=== PATIENT | female | born 1940 | race Caucasian/White ===

== ENCOUNTER 2016-08-05 21:34 | Inpatient (IN) | payer MEDICARE ==
[2016-08-05] MEDS ORDERED: HYDROmorphone 1 MG/ML SYRINGE IVP STA (23:34)
[2016-08-05] MEDS ORDERED: SODIUM CHLORIDE 0.9% 1,000 ML IV ONE (23:34)
[2016-08-05] MEDS ORDERED: KETOROLAC 60 MG/2 ML VIAL IVP STA (23:34)
[2016-08-05] MEDS ORDERED: ONDANSETRON 4 MG/2 ML VIAL IVP STA (23:34)
[2016-08-05] MEDS ORDERED: HYDROmorphone 1 MG/ML SYRINGE ONE (23:42)
[2016-08-05] MEDS ORDERED: KETOROLAC 30 MG/ML VIAL ONE (23:43)
[2016-08-05] MEDS ORDERED: ONDANSETRON 4 MG/2 ML VIAL ONE (23:43)
[2016-08-06] MEDS ORDERED: IOPAMIDOL-300 100 ML VIAL IVP ONE (00:28)
[2016-08-06] MEDS ORDERED: metroNIDAZOLE 500 MG/100 ML 100 ML IV ONE (01:32)
[2016-08-06] MEDS ORDERED: CIPROFLOXACIN 400 MG/200 ML 200 ML IV ONE (01:32)
[2016-08-06] MEDS ORDERED: BENZOCAINE/TETRACAINE/BUTAMBEN 20 GM MM PRN ×3 (01:50→17:35)
[2016-08-06] MEDS ORDERED: MORPHINE 2 MG/ML SYRINGE IVP PRN (01:50)
[2016-08-06] MEDS ORDERED: LORazepam 2 MG/ML SYRINGE IVP PRN (01:50)
[2016-08-06] MEDS ORDERED: PHENOL THROAT SPRAY 177 ML MM PRN ×2 (01:50→17:35)
[2016-08-06] MEDS ORDERED: PROCHLORPERAZINE 10 MG/2 ML VIAL IVP PRN (01:50)
[2016-08-06] MEDS ORDERED: ACETAMINOPHEN 1,000 MG/100 ML 100 ML IV PRN ×2 (01:50→17:35)
[2016-08-06] MEDS ORDERED: ONDANSETRON 4 MG/2 ML VIAL IVP PRN ×3 (01:50→17:59)
[2016-08-06] MEDS ORDERED: SODIUM CHLORIDE FLUSH 0.9% 10 ML SYRINGE IVP PRN (01:50)
[2016-08-06] MEDS ORDERED: BENZOCAINE SPRAY MM PRN ×3 (01:50→17:35)
[2016-08-06] MEDS ORDERED: CIPROFLOXACIN 400 MG/200 ML 200 ML IV SCH ×2 (03:00→18:00)
[2016-08-06] MEDS: LACTATED RINGERS 1,000 ML IV SCH ×2 (03:22→13:10)
[2016-08-06] MEDS ORDERED: LIDOCAINE JELLY 2% 5 ML TUBE TOP ONE (03:33)
[2016-08-06] MEDS ORDERED: SODIUM CHLORIDE FLUSH 0.9% 10 ML SYRINGE IVP SCH (06:00)
[2016-08-06] MEDS ORDERED: metroNIDAZOLE 500 MG/100 ML 100 ML IV SCH (06:00)
[2016-08-06] MEDS ORDERED: FAMOTIDINE 20 MG/50 ML 50 ML IV SCH (09:00)
[2016-08-06] MEDS ORDERED: SUFENTA/BUPIV 0.4 MCG/0.0625% 150 ML EP PRN (13:25)
[2016-08-06] MEDS ORDERED: NALBUPHINE 20 MG/ML AMP IVP PRN ×2 (13:27→17:59)
[2016-08-06] MEDS ORDERED: diphenhydrAMINE INJ 50 MG/ML VIAL IV PRN (13:27)
[2016-08-06] MEDS ORDERED: LACTATED RINGERS 1,000 ML IV ONE ×4 (14:28→17:00)
[2016-08-06] MEDS ORDERED: DEXAMETHASONE 4 MG/ML VIAL IVP ONE (14:30)
[2016-08-06] MEDS ORDERED: GLYCOPYRROLATE 1 MG/5 ML VIAL IVP ONE (14:30)
[2016-08-06] MEDS ORDERED: NEOSTIGMINE 1 MG/1 ML 10 ML MDV IVP ONE (14:30)
[2016-08-06] MEDS ORDERED: PROPOFOL 200 MG/20 ML VIAL IVP ONE (14:30)
[2016-08-06] MEDS ORDERED: fentaNYL 100 MCG/2 ML VIAL IVP ONE (14:30)
[2016-08-06] MEDS ORDERED: ACETAMINOPHEN 1,000 MG/100 ML VIAL IV ONE (14:30)
[2016-08-06] MEDS ORDERED: PHENYLEPHRINE 50 MG/5 ML VIAL IV ONE (14:30)
[2016-08-06] MEDS ORDERED: MIDAZOLAM 2 MG/2 ML VIAL IVP ONE (14:30)
[2016-08-06] MEDS ORDERED: SUCCINYLCHOLINE 200 MG/10 ML VIAL IVP ONE (14:30)
[2016-08-06] MEDS ORDERED: LIDOCAINE-PF 2% 10 ML AMP SUBQ ONE (14:30)
[2016-08-06] MEDS ORDERED: ROCURONIUM 50 MG/5 ML VIAL IVP ONE (14:30)
[2016-08-06] MEDS ORDERED: ONDANSETRON 4 MG/2 ML VIAL IVP ONE (14:30)
[2016-08-06] MEDS ORDERED: SUFENTA/BUPIV 0.4 MCG/0.0625% 150 ML EP ONE (17:20)
[2016-08-06] MEDS ORDERED: diphenhydrAMINE INJ 50 MG/ML VIAL IVP PRN (17:59)
[2016-08-06] MEDS ORDERED: fentaNYL 100 MCG/2 ML VIAL ONE (18:24)
[2016-08-06] MEDS ORDERED: ONDANSETRON 4 MG/2 ML VIAL ONE (20:19)
[2016-08-06] MEDS: FAMOTIDINE 20 MG/50 ML 50 ML IV SCH (21:21)
[2016-08-06] MEDS: D5.45NS W/20 MEQ KCL 1,000 ML IV SCH (21:21)
[2016-08-06] MEDS: HEPARIN 5,000 UNIT/ML VIAL SUBQ SCH (21:21)
[2016-08-06] MEDS: metroNIDAZOLE 500 MG/100 ML 100 ML IV SCH (22:50)
[2016-08-06] MEDS: SODIUM CHLORIDE FLUSH 0.9% 10 ML SYRINGE IVP SCH (22:50)
[2016-08-07] MEDS: SUFENTA/BUPIV 0.4 MCG/0.0625% 150 ML EP PRN ×4 (01:54→23:25)
[2016-08-07] MEDS: CIPROFLOXACIN 400 MG/200 ML 200 ML IV SCH ×2 (02:05→14:02)
[2016-08-07] MEDS: SODIUM CHLORIDE FLUSH 0.9% 10 ML SYRINGE IVP SCH ×3 (05:36→21:43)
[2016-08-07] MEDS: metroNIDAZOLE 500 MG/100 ML 100 ML IV SCH ×3 (05:43→21:37)
[2016-08-07] MEDS: D5.45NS W/20 MEQ KCL 1,000 ML IV SCH ×3 (08:08→23:27)
[2016-08-07] MEDS: HEPARIN 5,000 UNIT/ML VIAL SUBQ SCH ×2 (08:17→21:34)
[2016-08-07] MEDS: FAMOTIDINE 20 MG/50 ML 50 ML IV SCH ×2 (08:18→21:37)
[2016-08-07] MEDS: SODIUM CHLORIDE FLUSH 0.9% 10 ML SYRINGE IVP PRN (08:53)
[2016-08-07] MEDS: ONDANSETRON 4 MG/2 ML VIAL IVP PRN ×2 (09:08→18:51)
[2016-08-07] MEDS: HYDROmorphone 1 MG/ML SYRINGE IVP PRN (16:12)
[2016-08-08] MEDS: CIPROFLOXACIN 400 MG/200 ML 200 ML IV SCH ×2 (02:10→13:35)
[2016-08-08] MEDS: metroNIDAZOLE 500 MG/100 ML 100 ML IV SCH ×2 (05:18→14:56)
[2016-08-08] MEDS: SODIUM CHLORIDE FLUSH 0.9% 10 ML SYRINGE IVP SCH ×3 (05:19→22:03)
[2016-08-08] MEDS: SUFENTA/BUPIV 0.4 MCG/0.0625% 150 ML EP PRN ×3 (08:00→22:45)
[2016-08-08] MEDS: FAMOTIDINE 20 MG/50 ML 50 ML IV SCH ×2 (08:06→22:03)
[2016-08-08] MEDS: HEPARIN 5,000 UNIT/ML VIAL SUBQ SCH ×2 (08:07→22:02)
[2016-08-08] MEDS: D5.45NS W/20 MEQ KCL 1,000 ML IV SCH ×2 (10:02→11:48)
[2016-08-08] MEDS ORDERED: SODIUM PHOSPHATE 20 MMOL in SODIUM CHLORIDE 0.9% 250 ML IV ONE (11:00)
[2016-08-09] MEDS: D5.45NS W/20 MEQ KCL 1,000 ML IV SCH (00:11)
[2016-08-09] MEDS: LORazepam 2 MG/ML SYRINGE IVP PRN (00:19)
[2016-08-09] MEDS: METOCLOPRAMIDE 10 MG/2 ML VIAL IVP PRN (00:20)
[2016-08-09] MEDS: SODIUM CHLORIDE FLUSH 0.9% 10 ML SYRINGE IVP SCH ×3 (05:12→20:48)
[2016-08-09] MEDS ORDERED: POTASSIUM PHOSPHATE 21 MMOL in SODIUM CHLORIDE 0.9% 250 ML IV ONE (07:36)
[2016-08-09] MEDS: FAMOTIDINE 20 MG/50 ML 50 ML IV SCH ×2 (08:06→20:48)
[2016-08-09] MEDS: SUFENTA/BUPIV 0.4 MCG/0.0625% 150 ML EP PRN (08:08)
[2016-08-09] MEDS: HEPARIN 5,000 UNIT/ML VIAL SUBQ SCH ×2 (08:15→20:48)
[2016-08-09] MEDS ORDERED: SUFENTA/BUPIV 0.4 MCG/0.0625% 150 ML EP PRN (10:36)
[2016-08-09] MEDS: HYDROmorphone 2 MG TABLET PO PRN (17:03)
[2016-08-10] MEDS: SODIUM CHLORIDE FLUSH 0.9% 10 ML SYRINGE IVP PRN ×2 (03:40→14:31)
[2016-08-10] MEDS: HYDROmorphone 1 MG/ML SYRINGE IVP PRN ×3 (03:40→20:33)
[2016-08-10] MEDS: SODIUM CHLORIDE FLUSH 0.9% 10 ML SYRINGE IVP SCH ×3 (06:09→23:19)
[2016-08-10] MEDS: FAMOTIDINE 20 MG/50 ML 50 ML IV SCH ×2 (08:18→21:33)
[2016-08-10] MEDS: HEPARIN 5,000 UNIT/ML VIAL SUBQ SCH ×2 (08:21→21:33)
[2016-08-10] MEDS ORDERED: IOPAMIDOL-300 100 ML VIAL IVP ONE (09:19)
[2016-08-10] MEDS: HYDROmorphone 2 MG TABLET PO PRN (10:25)
[2016-08-10] MEDS: ONDANSETRON 4 MG/2 ML VIAL IVP PRN (20:33)
[2016-08-10] MEDS: D5NS W/20 MEQ KCL 1,000 ML IV SCH (20:50)
[2016-08-10] MEDS ORDERED: BISACODYL 10 MG SUPP PR SCH (21:00)
[2016-08-10] MEDS ORDERED: D5.45NS W/20 MEQ KCL 1,000 ML IV SCH (21:00)
[2016-08-11] MEDS: HYDROmorphone 1 MG/ML SYRINGE IVP PRN (04:45)
[2016-08-11] MEDS: SODIUM CHLORIDE FLUSH 0.9% 10 ML SYRINGE IVP SCH ×3 (05:05→21:17)
[2016-08-11] MEDS: D5NS W/20 MEQ KCL 1,000 ML IV SCH ×2 (05:47→15:56)
[2016-08-11] MEDS: FAMOTIDINE 20 MG/50 ML 50 ML IV SCH ×2 (09:58→21:17)
[2016-08-11] MEDS: LISINOPRIL 5 MG TABLET PO SCH (10:03)
[2016-08-11] MEDS: HEPARIN 5,000 UNIT/ML VIAL SUBQ SCH ×2 (10:51→21:16)
[2016-08-11] MEDS ORDERED: POTASSIUM CHLORIDE INJ 40 MEQ in SODIUM CHLORIDE 0.9% 480 ML IV ONE (11:41)
[2016-08-11] MEDS ORDERED: MAGNESIUM SULFATE 2 GRAM 50 ML IV ONE ×2 (11:42→15:27)
[2016-08-11] MEDS: POTASSIUM CHLOR 10 MEQ/100 ML 100 ML IV SCH ×4 (15:56→20:07)
[2016-08-11] MEDS: HYDROmorphone 2 MG TABLET PO PRN (16:03)
[2016-08-12] MEDS: HYDROmorphone 1 MG/ML SYRINGE IVP PRN ×4 (00:01→20:27)
[2016-08-12] MEDS: D5NS W/20 MEQ KCL 1,000 ML IV SCH (04:58)
[2016-08-12] MEDS: SODIUM CHLORIDE FLUSH 0.9% 10 ML SYRINGE IVP SCH ×3 (05:02→20:58)
[2016-08-12] MEDS: HEPARIN 5,000 UNIT/ML VIAL SUBQ SCH ×2 (10:02→20:39)
[2016-08-12] MEDS: LISINOPRIL 5 MG TABLET PO SCH (10:05)
[2016-08-12] MEDS: FAMOTIDINE 20 MG/50 ML 50 ML IV SCH ×2 (10:12→20:39)
[2016-08-12] MEDS: SODIUM CHLORIDE FLUSH 0.9% 10 ML SYRINGE IVP PRN (10:19)
[2016-08-12] MEDS: FAT EMULSION 20% 250 ML IV SCH (17:31)
[2016-08-12] MEDS: PPN (CLINIMIX E 4.25/5) 2,000 ML with MULTIVITAMIN 10 ML, TRACE ELEMENTS V CONC 1 ML IV SCH ×3 (17:32)
[2016-08-12] MEDS: ONDANSETRON 4 MG/2 ML VIAL IVP PRN (20:27)
[2016-08-12] MEDS: LORazepam 2 MG/ML SYRINGE IVP PRN (20:27)
[2016-08-13] MEDS: INSULIN REGULAR HUMAN 100 UNIT/1 ML 10 ML MDV SUBQ SCH ×4 (01:16→20:54)
[2016-08-13] MEDS: METOCLOPRAMIDE 10 MG/2 ML VIAL IVP PRN ×2 (01:27→17:14)
[2016-08-13] MEDS: SODIUM CHLORIDE FLUSH 0.9% 10 ML SYRINGE IVP SCH ×3 (06:11→21:00)
[2016-08-13] MEDS: FAMOTIDINE 20 MG/50 ML 50 ML IV SCH ×2 (10:16→20:55)
[2016-08-13] MEDS: LISINOPRIL 5 MG TABLET PO SCH (10:16)
[2016-08-13] MEDS: HEPARIN 5,000 UNIT/ML VIAL SUBQ SCH ×2 (10:18→21:00)
[2016-08-13] MEDS: LORazepam 2 MG/ML SYRINGE IVP PRN ×2 (17:14→21:45)
[2016-08-13] MEDS: PPN (CLINIMIX E 4.25/5) 2,000 ML with MULTIVITAMIN 10 ML, TRACE ELEMENTS V CONC 1 ML IV SCH ×3 (17:36)
[2016-08-13] MEDS: FAT EMULSION 20% 250 ML IV SCH (17:37)
[2016-08-13] MEDS: HYDROmorphone 2 MG TABLET PO PRN (21:44)
[2016-08-14] MEDS: INSULIN REGULAR HUMAN 100 UNIT/1 ML 10 ML MDV SUBQ SCH ×4 (01:21→19:11)
[2016-08-14] MEDS: SODIUM CHLORIDE FLUSH 0.9% 10 ML SYRINGE IVP PRN (03:23)
[2016-08-14] MEDS: LORazepam 2 MG/ML SYRINGE IVP PRN ×3 (05:04→21:44)
[2016-08-14] MEDS: SODIUM CHLORIDE FLUSH 0.9% 10 ML SYRINGE IVP SCH ×3 (05:05→21:39)
[2016-08-14] MEDS: HEPARIN 5,000 UNIT/ML VIAL SUBQ SCH ×2 (08:40→21:38)
[2016-08-14] MEDS: FAMOTIDINE 20 MG/50 ML 50 ML IV SCH ×2 (08:43→21:44)
[2016-08-14] MEDS: LISINOPRIL 5 MG TABLET PO SCH (08:43)
[2016-08-14] MEDS: hydroCHLOROthiazide 12.5 MG CAPSULE PO SCH (10:50)
[2016-08-14] MEDS: ONDANSETRON 4 MG/2 ML VIAL IVP PRN (12:26)
[2016-08-14] MEDS ORDERED: IOPAMIDOL-300 100 ML VIAL IVP ONE (15:43)
[2016-08-14] MEDS: FAT EMULSION 20% 250 ML IV SCH (19:11)
[2016-08-14] MEDS: PPN (CLINIMIX E 4.25/5) 2,000 ML with MULTIVITAMIN 10 ML, TRACE ELEMENTS V CONC 1 ML IV SCH ×3 (19:11)
[2016-08-14] MEDS: HYDROmorphone 2 MG TABLET PO PRN (21:44)
[2016-08-15] MEDS: INSULIN REGULAR HUMAN 100 UNIT/1 ML 10 ML MDV SUBQ SCH ×4 (00:29→19:24)
[2016-08-15] MEDS: SODIUM CHLORIDE FLUSH 0.9% 10 ML SYRINGE IVP SCH ×3 (06:36→20:50)
[2016-08-15] MEDS: hydroCHLOROthiazide 12.5 MG CAPSULE PO SCH (09:07)
[2016-08-15] MEDS: FAMOTIDINE 20 MG/50 ML 50 ML IV SCH ×2 (09:07→20:50)
[2016-08-15] MEDS: LISINOPRIL 5 MG TABLET PO SCH (09:07)
[2016-08-15] MEDS: HEPARIN 5,000 UNIT/ML VIAL SUBQ SCH ×2 (09:21→20:51)
[2016-08-15] MEDS: ONDANSETRON 4 MG/2 ML VIAL IVP PRN (16:16)
[2016-08-15] MEDS: SODIUM CHLORIDE FLUSH 0.9% 10 ML SYRINGE IVP PRN ×2 (16:16→19:13)
[2016-08-15] MEDS: FAT EMULSION 20% 250 ML IV SCH (19:11)
[2016-08-15] MEDS: TPN (CLINIMIX E 5/15) 2,000 ML with MULTIVITAMIN 10 ML, TRACE ELEMENTS V CONC 1 ML IV SCH ×3 (19:11)
[2016-08-16] MEDS: INSULIN REGULAR HUMAN 100 UNIT/1 ML 10 ML MDV SUBQ SCH ×4 (01:08→17:34)
[2016-08-16] MEDS: TPN (CLINIMIX E 5/15) 2,000 ML with MULTIVITAMIN 10 ML, TRACE ELEMENTS V CONC 1 ML IV SCH ×6 (01:23→18:36)
[2016-08-16] MEDS: SODIUM CHLORIDE FLUSH 0.9% 10 ML SYRINGE IVP SCH ×3 (06:07→20:42)
[2016-08-16] MEDS: FAMOTIDINE 20 MG/50 ML 50 ML IV SCH ×2 (08:59→20:42)
[2016-08-16] MEDS: HEPARIN 5,000 UNIT/ML VIAL SUBQ SCH ×2 (09:00→20:41)
[2016-08-16] MEDS: hydroCHLOROthiazide 12.5 MG CAPSULE PO SCH (09:02)
[2016-08-16] MEDS: LISINOPRIL 5 MG TABLET PO SCH (09:05)
[2016-08-16] MEDS: SODIUM CHLORIDE FLUSH 0.9% 10 ML SYRINGE IVP PRN (09:36)
[2016-08-16] MEDS: FAT EMULSION 20% 250 ML IV SCH (18:36)
[2016-08-16] MEDS: ONDANSETRON 4 MG/2 ML VIAL IVP PRN (18:47)
[2016-08-16] MEDS: HYDROmorphone 2 MG TABLET PO PRN (20:56)
[2016-08-17] MEDS: INSULIN REGULAR HUMAN 100 UNIT/1 ML 10 ML MDV SUBQ SCH ×5 (00:26→23:40)
[2016-08-17] MEDS: SODIUM CHLORIDE FLUSH 0.9% 10 ML SYRINGE IVP SCH ×3 (06:09→20:36)
[2016-08-17] MEDS: LISINOPRIL 5 MG TABLET PO SCH (08:27)
[2016-08-17] MEDS: HEPARIN 5,000 UNIT/ML VIAL SUBQ SCH ×2 (08:27→20:37)
[2016-08-17] MEDS: hydroCHLOROthiazide 12.5 MG CAPSULE PO SCH (08:27)
[2016-08-17] MEDS: FAMOTIDINE 20 MG/50 ML 50 ML IV SCH ×2 (08:33→20:36)
[2016-08-17] MEDS ORDERED: DIATR MEGLU/DIATRIZOATE SODIUM 120 ML BOTTLE PO ONE (15:15)
[2016-08-17] MEDS: TPN (CLINIMIX E 5/15) 2,000 ML with MULTIVITAMIN 10 ML, TRACE ELEMENTS V CONC 1 ML IV SCH ×3 (20:36)
[2016-08-17] MEDS: FAT EMULSION 20% 250 ML IV SCH (20:36)
[2016-08-17] MEDS: SODIUM CHLORIDE FLUSH 0.9% 10 ML SYRINGE IVP PRN (20:37)
[2016-08-18] MEDS: SODIUM CHLORIDE FLUSH 0.9% 10 ML SYRINGE IVP PRN ×4 (00:17→10:14)
[2016-08-18] MEDS: LORazepam 2 MG/ML SYRINGE IVP PRN (00:17)
[2016-08-18] MEDS: SODIUM CHLORIDE FLUSH 0.9% 10 ML SYRINGE IVP SCH ×3 (05:10→21:43)
[2016-08-18] MEDS: INSULIN REGULAR HUMAN 100 UNIT/1 ML 10 ML MDV SUBQ SCH ×4 (06:26→23:45)
[2016-08-18] MEDS: HEPARIN 5,000 UNIT/ML VIAL SUBQ SCH ×2 (09:36→20:52)
[2016-08-18] MEDS: LISINOPRIL 5 MG TABLET PO SCH (09:36)
[2016-08-18] MEDS: FAMOTIDINE 20 MG/50 ML 50 ML IV SCH (09:36)
[2016-08-18] MEDS: hydroCHLOROthiazide 12.5 MG CAPSULE PO SCH (09:36)
[2016-08-18] MEDS ORDERED: LORazepam 0.5 MG TABLET PO PRN (09:38)
[2016-08-18] MEDS ORDERED: IRON SUCROSE 200 MG in SODIUM CHLORIDE 0.9% 100ML 100 ML IV ONE (10:30)
[2016-08-18] MEDS: MEGESTROL 400 MG/10 ML UDC PO SCH (11:16)
[2016-08-18] MEDS: ONDANSETRON 4 MG/2 ML VIAL IVP PRN (21:43)
[2016-08-19] MEDS: SODIUM CHLORIDE FLUSH 0.9% 10 ML SYRINGE IVP PRN ×4 (02:49→12:45)
[2016-08-19] MEDS: PROCHLORPERAZINE 10 MG/2 ML VIAL IVP PRN ×2 (02:49→12:45)
[2016-08-19] MEDS: SODIUM CHLORIDE FLUSH 0.9% 10 ML SYRINGE IVP SCH ×2 (05:59→14:27)
[2016-08-19] MEDS: INSULIN REGULAR HUMAN 100 UNIT/1 ML 10 ML MDV SUBQ SCH ×2 (05:59→14:14)
[2016-08-19] MEDS: hydroCHLOROthiazide 12.5 MG CAPSULE PO SCH (08:46)
[2016-08-19] MEDS: LISINOPRIL 5 MG TABLET PO SCH (08:46)
[2016-08-19] MEDS: MEGESTROL 400 MG/10 ML UDC PO SCH (08:46)
[2016-08-19] MEDS: HEPARIN 5,000 UNIT/ML VIAL SUBQ SCH (08:47)
[2016-08-19] MEDS ORDERED: FAMOTIDINE 20 MG TABLET PO SCH (09:00)
[2016-08-19] MEDS: ONDANSETRON 4 MG/2 ML VIAL IVP PRN (11:35)
== END 2016-08-19 17:05 | disposition home or self-care (01) | DRG 330 ==
PROC: 0DTF0ZZ Resection of Right Large Intestine, Open Approach (ICD-10-PCS; principal; 2016-08-05)
PROC: 0DBB0ZZ Excision of Ileum, Open Approach (ICD-10-PCS; 2016-08-06 11:10)
PROC: 3E0436Z Introduction of Nutritional Substance into Central Vein, Percutaneous Approach (ICD-10-PCS; 2016-08-15)
PROC: 02HV33Z Insertion of Infusion Device into Superior Vena Cava, Percutaneous Approach (ICD-10-PCS; 2016-08-15)
DX: K52.9 Noninfective gastroenteritis and colitis, unspecified (principal); K56.60 Unspecified intestinal obstruction; C18.2 Malignant neoplasm of ascending colon; F17.200 Nicotine dependence, unspecified, uncomplicated; E46 Unspecified protein-calorie malnutrition; K91.3 Postprocedural intestinal obstruction; J98.11 Atelectasis; J90 Pleural effusion, not elsewhere classified; J95.89 Other postprocedural complications and disorders of respiratory system, not elsewhere classified; Z68.20 Body mass index [BMI] 20.0-20.9, adult; Y92.234 Operating room of hospital as the place of occurrence of the external cause; I10 Essential (primary) hypertension; E83.42 Hypomagnesemia; E87.6 Hypokalemia; E83.39 Other disorders of phosphorus metabolism; D50.9 Iron deficiency anemia, unspecified; E53.8 Deficiency of other specified B group vitamins; E55.9 Vitamin D deficiency, unspecified; F17.210 Nicotine dependence, cigarettes, uncomplicated; E78.00 Pure hypercholesterolemia, unspecified; K21.9 Gastro-esophageal reflux disease without esophagitis; S90.121A Contusion of right lesser toe(s) without damage to nail, initial encounter; X58.XXXA Exposure to other specified factors, initial encounter; N63 Unspecified lump in breast; Y83.2 Surgical operation with anastomosis, bypass or graft as the cause of abnormal reaction of the patient, or of later complication, without mention of misadventure at the time of the procedure; Z80.0 Family history of malignant neoplasm of digestive organs

== ENCOUNTER 2016-08-25 10:09 | Outpatient (CLI) | payer MEDICARE | END 2016-08-25 10:10 | disposition home or self-care (01) | DX: C18.2 Malignant neoplasm of ascending colon (principal) ==

== ENCOUNTER 2016-09-07 10:51 | Outpatient (CLI) | payer MEDICARE | END 2016-09-07 10:52 | disposition home or self-care (01) | DX: N63 Unspecified lump in breast (principal) | CPT/HCPCS: 76642; G0204 ==

== ENCOUNTER 2016-09-21 09:07 | Outpatient (CLI) | payer MEDICARE ==
[2016-09-21] MEDS ORDERED: BUFFERED LIDOCAINE 10 ML SYRINGE IU ONE (12:21)
[2016-09-21] MEDS ORDERED: BUPIVACAINE 0.5%-EPI 1:200000 PF 30 ML VIAL SUBQ ONE (12:21)
== END 2016-09-21 09:08 | disposition home or self-care (01) ==
DX: N64.89 Other specified disorders of breast (principal)
CPT/HCPCS: 19083; G0206

== ENCOUNTER 2016-12-01 11:06 | Day surgery (SDC) | payer MEDICARE ==
[2016-12-01] MEDS ORDERED: LACTATED RINGERS 1,000 ML IV ONE ×2 (12:03→15:48)
[2016-12-01] MEDS ORDERED: fentaNYL 100 MCG/2 ML VIAL IVP ONE (14:45)
[2016-12-01] MEDS ORDERED: MIDAZOLAM 2 MG/2 ML VIAL IVP ONE (14:45)
[2016-12-01 16:38] VITALS: BP 103/59
== END 2016-12-01 11:07 | disposition home or self-care (01) ==
LOC: SDS 11:06
PROVIDERS: ATTEND Surgery
PROC: 0DBL8ZX Excision of Transverse Colon, Via Natural or Artificial Opening Endoscopic, Diagnostic (ICD-10-PCS; 2016-12-01)
PROC: 0DBM8ZX Excision of Descending Colon, Via Natural or Artificial Opening Endoscopic, Diagnostic (ICD-10-PCS; principal; 2016-12-01 13:15)
DX: Z85.038 Personal history of other malignant neoplasm of large intestine (principal); D12.4 Benign neoplasm of descending colon; D12.3 Benign neoplasm of transverse colon; K64.8 Other hemorrhoids; K57.30 Diverticulosis of large intestine without perforation or abscess without bleeding; I10 Essential (primary) hypertension; K21.9 Gastro-esophageal reflux disease without esophagitis; Z90.49 Acquired absence of other specified parts of digestive tract; Z87.891 Personal history of nicotine dependence
CPT/HCPCS: 45385; J7120; 88305

== ENCOUNTER 2017-02-16 11:25 | Outpatient (CLI) | payer MEDICARE ==
[2017-02-16 19:27] LABS: BASOPHILS % (AUTO) 0.4 %; EOSINOPHILS # (AUTO) 0.1 10^3/uL (0.0-0.7); HCT - HEMATOCRIT 41.7 % (37.0-47.0); HGB - HEMOGLOBIN 13.7 g/dL (12.0-16.0); LYMPHOCYTES # (AUTO) 1.5 10^3/uL (1.5-3.5); LYMPHOCYTES % (AUTO) 21.2 %; MEAN CORPUSCULAR HGB CONC 32.9 g/dL (32.0-36.0); MEAN PLATELET VOLUME 7.1 fL (7.9-10.8); MONOCYTES # (AUTO) 0.5 10^3/uL (0.0-1.0); MONOCYTES % (AUTO) 7.3 %; NEUTROPHILS % (AUTO) 70.1 %; NUCLEATED RED BLOOD CELLS AUTO 0.1 /100WBC; RED CELL DISTRIBUTION WIDTH 14.4 % (12.0-15.0); UNCORRECTED WHITE BLOOD COUNT 7.1 x10^3/uL; WHITE BLOOD COUNT 7.1 x10^3/uL (4.8-10.8)
[2017-02-16 19:37] LABS: ALBUMIN/GLOBULIN RATIO 1.2 (1.0-2.2); BILIRUBIN,TOTAL 0.7 mg/dL (0.2-1.0); CALCIUM 9.7 mg/dL (8.5-10.3); CREATININE 0.8 mg/dL (0.4-1.0); POTASSIUM 3.3 mmol/L (3.5-5.0); TOTAL PROTEIN 8.3 g/dL (6.7-8.2)
== END 2017-02-16 11:26 ==
LOC: LAB.WCP 11:25
PROVIDERS: ATTEND Physician Assistant Medical
DX: I10 Essential (primary) hypertension (principal)
CPT/HCPCS: 36415; 80053; 85025

== ENCOUNTER 2017-06-05 13:42 | Outpatient (CLI) | payer MEDICARE ==
--- NOTE | 2017-06-05 18:11 | Mammography Report ---
DIGITAL DIAGNOSTIC RIGHT MAMMOGRAM: 06/05/2017 CLINICAL INDICATION: Followup benign biopsy. COMPARISON: 09/21/2016, 09/07/2016. TECHNIQUE: Right CC, MLO, true lateral views. FINDINGS: The right breast again demonstrates heterogeneously dense fibroglandular parenchyma. The previously biopsied hematoma in the right upper outer quadrant has decreased in size, now measuring 3.3 cm, and demonstrates increased rim calcification. The biopsy marker has migrated inferiorly by approximately 2.5 cm and laterally by approximately 3.5 cm. Other coarse, typically benign calcifications are present. No suspicious mass or region of architectural distortion is identified. IMPRESSION: BENIGN FINDINGS, WITH DECREASING SIZE OF THE PREVIOUSLY BIOPSIED HEMATOMA. RECOMMENDATION: The patient can return to routine annual screening, with next screening mammogram due in August 2017, unless otherwise clinically indicated. BIRADS CATEGORY 2 - BENIGN FINDINGS. STANDARD QUALIFYING STATEMENTS 1. This examination was reviewed with the aid of Computed Aided Detection (CAD). 2. A negative x-ray report should not delay biopsy if a dominant or clinically suspicious mass is present. More than 5% of cancers are not identified by x-ray. 3. Dense breasts may obscure an underlying neoplasm. TD: 06/05/2017 19:06 AUDREY
== END 2017-06-05 13:43 | disposition home or self-care (01) ==
LOC: DI 13:42
PROVIDERS: ATTEND Physician Assistant Medical
DX: R92.8 Other abnormal and inconclusive findings on diagnostic imaging of breast (principal)

== ENCOUNTER 2017-12-25 08:28 | Outpatient (CLI) | payer MEDICARE, OTHER ==
[2017-12-25 12:50] LABS: BASOPHILS % (AUTO) 0.9 %; EOSINOPHILS # (AUTO) 0.2 10^3/uL (0.0-0.7); EOSINOPHILS % (AUTO) 3.5 %; HGB - HEMOGLOBIN 13.9 g/dL (12.0-16.0); LYMPHOCYTES # (AUTO) 1.4 10^3/uL (1.5-3.5); LYMPHOCYTES % (AUTO) 29.8 %; MEAN CORPUSCULAR HEMOGLOBIN 29.2 pg (27.0-31.0); MEAN CORPUSCULAR HGB CONC 33.8 g/dL (32.0-36.0); MEAN CORPUSCULAR VOLUME 86.6 fL (81.0-99.0); MEAN PLATELET VOLUME 7.6 fL (7.9-10.8); MONOCYTES # (AUTO) 0.3 10^3/uL (0.0-1.0); MONOCYTES % (AUTO) 7.1 %; NEUTROPHILS # (AUTO) 2.7 10^3/uL (1.5-6.6); NEUTROPHILS % (AUTO) 58.7 %; PLT - PLATELET COUNT 271 10^3/uL (130-450); RED BLOOD COUNT 4.77 10^6/uL (4.20-5.40); RED CELL DISTRIBUTION WIDTH 13.4 % (12.0-15.0); WHITE BLOOD COUNT 4.7 x10^3/uL (4.8-10.8)
[2017-12-25 13:34] LABS: ALBUMIN 4.3 g/dL (3.2-5.5); ALBUMIN/GLOBULIN RATIO 1.4 (1.0-2.2); ALKALINE PHOSPHATASE 64 IU/L (42-121); ALT ALANINE AMINOTRANSFERASE 39 IU/L (10-60); AST ASPARTATE AMINOTRANSFERASE 37 IU/L (10-42); BILIRUBIN,TOTAL 0.6 mg/dL (0.2-1.0); BUN - BLOOD UREA NITROGEN 19 mg/dL (6-20); CALCIUM 9.4 mg/dL (8.5-10.3); CARBON DIOXIDE - CO2 31 mmol/L (21-32); CHLORIDE 102 mmol/L (101-111); CHOL/HDL RATIO 5.7 (<4.4); CHOLESTEROL 298 mg/dL; CREATININE 0.8 mg/dL (0.4-1.0); GFR - MDRD 70 (>89); GLUCOSE 111 mg/dL (70-100); HDL CHOLESTEROL 52 mg/dL; LDL CHOLESTEROL,CALCULATED 179 mg/dL; LDL/HDL RATIO 3.4 (<4.4); SODIUM 141 mmol/L (135-145); TOTAL PROTEIN 7.3 g/dL (6.7-8.2); VLDL CHOLESTEROL 67 mg/dL
[2017-12-25 13:56] LABS: HB2 TOTAL 15.3 g/dL; HEMOGLOBIN A1C 0.62 g/dL; HEMOGLOBIN A1C % 5.9 % (4.6-6.2)
== END 2017-12-25 08:29 ==
LOC: LAB.WCP 08:28
PROVIDERS: ATTEND Physician Assistant Medical
DX: I10 Essential (primary) hypertension (principal); E78.5 Hyperlipidemia, unspecified; R73.09 Other abnormal glucose
CPT/HCPCS: 36415; 80053; 80061; 83036; 83721; 85025

== ENCOUNTER 2018-02-12 11:05 | Day surgery (SDC) | payer MEDICARE ==
[2018-02-12] MEDS ORDERED: LACTATED RINGERS 1,000 ML IV ONE ×2 (11:34→13:08)
[2018-02-12] MEDS ORDERED: fentaNYL 250 MCG/5 ML VIAL IVP ONE (12:21)
[2018-02-12] MEDS ORDERED: MIDAZOLAM 2 MG/2 ML VIAL IVP ONE (12:21)
[2018-02-12 13:33] VITALS: BP 94/60
== END 2018-02-12 11:06 | disposition home or self-care (01) ==
LOC: SDS 11:05
PROVIDERS: ATTEND Surgery
PROC: 0DJD8ZZ Inspection of Lower Intestinal Tract, Via Natural or Artificial Opening Endoscopic (ICD-10-PCS; principal; 2018-02-12 12:30)
DX: Z12.11 Encounter for screening for malignant neoplasm of colon (principal); Z85.038 Personal history of other malignant neoplasm of large intestine; K64.8 Other hemorrhoids; I10 Essential (primary) hypertension; Z79.899 Other long term (current) drug therapy; Z87.891 Personal history of nicotine dependence
CPT/HCPCS: G0105; J3010; J7120

== ENCOUNTER 2018-08-27 08:00 | Outpatient (CLI) | payer MEDICARE ==
[2018-08-27 19:46] LABS: BASOPHILS % (AUTO) 0.5 %; EOSINOPHILS # (AUTO) 0.2 10^3/uL (0.0-0.7); EOSINOPHILS % (AUTO) 2.5 %; HGB - HEMOGLOBIN 14.1 g/dL (12.0-16.0); LYMPHOCYTES # (AUTO) 1.2 10^3/uL (1.5-3.5); LYMPHOCYTES % (AUTO) 18.5 %; MEAN CORPUSCULAR HEMOGLOBIN 28.8 pg (27.0-31.0); MEAN CORPUSCULAR HGB CONC 32.5 g/dL (32.0-36.0); MEAN CORPUSCULAR VOLUME 88.7 fL (81.0-99.0); MEAN PLATELET VOLUME 7.2 fL (7.9-10.8); MONOCYTES # (AUTO) 0.5 10^3/uL (0.0-1.0); MONOCYTES % (AUTO) 7.8 %; NEUTROPHILS # (AUTO) 4.8 10^3/uL (1.5-6.6); NEUTROPHILS % (AUTO) 70.7 %; PLT - PLATELET COUNT 261 10^3/uL (130-450); RED BLOOD COUNT 4.89 10^6/uL (4.20-5.40); RED CELL DISTRIBUTION WIDTH 13.5 % (12.0-15.0); WHITE BLOOD COUNT 6.7 x10^3/uL (4.8-10.8)
[2018-08-27 19:49] LABS: ALBUMIN 4.3 g/dL (3.2-5.5); ALBUMIN/GLOBULIN RATIO 1.3 (1.0-2.2); ALKALINE PHOSPHATASE 52 IU/L (42-121); ALT ALANINE AMINOTRANSFERASE 39 IU/L (10-60); AST ASPARTATE AMINOTRANSFERASE 36 IU/L (10-42); BILIRUBIN,TOTAL 0.8 mg/dL (0.2-1.0); BUN - BLOOD UREA NITROGEN 18 mg/dL (6-20); CALCIUM 9.9 mg/dL (8.5-10.3); CARBON DIOXIDE - CO2 31 mmol/L (21-32); CHLORIDE 100 mmol/L (101-111); CHOL/HDL RATIO 6.1 (<4.4); CHOLESTEROL 323 mg/dL; CREATININE 0.9 mg/dL (0.4-1.0); GFR - MDRD 61 (>89); GLUCOSE 98 mg/dL (70-100); HDL CHOLESTEROL 53 mg/dL; LDL CHOLESTEROL,CALCULATED 212 mg/dL; SODIUM 143 mmol/L (135-145); TOTAL PROTEIN 7.7 g/dL (6.7-8.2); VLDL CHOLESTEROL 58 mg/dL
[2018-08-27 20:06] LABS: HB2 TOTAL 15.5 g/dL; HEMOGLOBIN A1C 0.62 g/dL; HEMOGLOBIN A1C % 5.8 % (4.6-6.2)
== END 2018-08-27 23:59 | disposition home or self-care (01) ==
LOC: LAB.WCP 08:00
PROVIDERS: ATTEND Physician Assistant Medical
DX: R73.09 Other abnormal glucose (principal); E78.5 Hyperlipidemia, unspecified; D50.9 Iron deficiency anemia, unspecified
CPT/HCPCS: 36415; 80053; 80061; 83036; 83721; 85025

== ENCOUNTER → 2019-02-18 | Outpatient (CLI) | payer MEDICARE ==
--- NOTE | 2019-02-19 11:22 | XRAY Report ---
Reason: LEFT KNEE PAIN Procedure Date: 02/18/2019 Accession Number: [id number] / [id number] Procedure: WCP - Knee 3 View LT CPT Code: FULL RESULT: EXAM: LEFT KNEE RADIOGRAPHY EXAM DATE: 02/18/2019 11:52 AM. CLINICAL HISTORY: Left knee pain. COMPARISON: None. TECHNIQUE: 3 views. FINDINGS: Bones: Normal. No fractures or bone lesions. Joints: Minor marginal spurring is seen mostly in the patellofemoral and medial compartment. Minimal joint space narrowing is suggested medially. Alignment is otherwise preserved. No effusion. Soft Tissues: Mild chondrocalcinosis is seen in the lateral compartment. IMPRESSION: Minimal to mild DJD changes seen. Mild chondrocalcinosis seen. RADIA
--- NOTE | 2019-02-19 15:46 | XRAY Report ---
Reason: LEFT FOOT DROP Procedure Date: 02/18/2019 Accession Number: [id number] / [id number] Procedure: WCP - Foot 3 View LT CPT Code: FULL RESULT: EXAM: LEFT FOOT RADIOGRAPHY EXAM DATE: 02/18/2019 11:52 AM. CLINICAL HISTORY: LEFT FOOT DROP. COMPARISON: None. TECHNIQUE: 3 views. FINDINGS: Bones: Small plantar calcaneal heel spur and Achilles insertional enthesophyte. No fractures. Normal alignment. Flattening of the second metatarsal head may be physiologic or reflect healed osteonecrosis. Joints: Normal. No subluxations. Soft Tissues: Normal. No soft tissue swelling. IMPRESSION: No fracture. RADIA
== END ==
LOC: DI.WCP 08:00 → EDSTATUS 12:28
PROVIDERS: ATTEND Physician Assistant Medical
DX: M17.12 Unilateral primary osteoarthritis, left knee (principal); M11.262 Other chondrocalcinosis, left knee; M21.372 Foot drop, left foot

== ENCOUNTER 2019-03-04 08:12 | Outpatient (CLI) | payer MEDICARE ==
[2019-03-04 12:41] LABS: CALCIUM 9.8 mg/dL (8.5-10.3)
[2019-03-04 12:55] LABS: HB2 TOTAL 13.7 g/dL; HEMOGLOBIN A1C 0.54 g/dL; HEMOGLOBIN A1C % 5.8 % (4.6-6.2)
== END 2019-03-04 23:59 | disposition home or self-care (01) ==
LOC: LAB.WCP 08:12
PROVIDERS: ATTEND Physician Assistant Medical
DX: R73.09 Other abnormal glucose (principal)
CPT/HCPCS: 36415; 80048; 83036

== ENCOUNTER 2019-05-06 13:02 | Day surgery (SDC) | payer MEDICARE ==
[2019-05-06] MEDS ORDERED: MIDAZOLAM 2 MG/2 ML VIAL IVP ONE (13:03)
[2019-05-06] MEDS ORDERED: fentaNYL 250 MCG/5 ML VIAL IVP ONE (13:03)
[2019-05-06] MEDS ORDERED: LACTATED RINGERS 1,000 ML IV ONE (13:12)
[2019-05-06 15:54] VITALS: BP 93/40
== END 2019-05-06 13:03 | disposition home or self-care (01) ==
LOC: SDS 13:02
PROVIDERS: ATTEND Internal Medicine Gastroenterology
PROC: 0DJD8ZZ Inspection of Lower Intestinal Tract, Via Natural or Artificial Opening Endoscopic (ICD-10-PCS; principal; 2019-05-06 14:30)
DX: Z12.11 Encounter for screening for malignant neoplasm of colon (principal); K57.30 Diverticulosis of large intestine without perforation or abscess without bleeding; I10 Essential (primary) hypertension; Z85.038 Personal history of other malignant neoplasm of large intestine; Z86.010 Personal history of colon polyps; Z90.49 Acquired absence of other specified parts of digestive tract; Z98.0 Intestinal bypass and anastomosis status; Z79.899 Other long term (current) drug therapy; Z87.891 Personal history of nicotine dependence
CPT/HCPCS: G0105; J3010; J7120

== ENCOUNTER 2021-12-15 15:36 | Emergency (ER) | payer MEDICARE, OTHER ==
[2021-12-15] MEDS ORDERED: MORPHINE 2 MG/ML CARPUJECT IVP STA ×2 (15:43→16:37)
[2021-12-15 15:56] LABS: BASOPHILS % (AUTO) 0.3 %; EOSINOPHILS # (AUTO) 0.1 10^3/uL (0.0-0.7); EOSINOPHILS % (AUTO) 1.1 %; HCT - HEMATOCRIT 37.8 % (37.0-47.0); HGB - HEMOGLOBIN 12.1 g/dL (12.0-16.0); LYMPHOCYTES # (AUTO) 0.9 10^3/uL (1.5-3.5); LYMPHOCYTES % (AUTO) 10.5 %; MEAN CORPUSCULAR HEMOGLOBIN 28.4 pg (27.0-31.0); MEAN CORPUSCULAR VOLUME 88.7 fL (81.0-99.0); MEAN PLATELET VOLUME 8.5 fL (7.9-10.8); MONOCYTES # (AUTO) 0.5 10^3/uL (0.0-1.0); MONOCYTES % (AUTO) 5.5 %; NEUTROPHILS # (AUTO) 7.3 10^3/uL (1.5-6.6); NEUTROPHILS % (AUTO) 82.4 %; PLT - PLATELET COUNT 228 10^3/uL (130-450); RED BLOOD COUNT 4.26 10^6/uL (4.20-5.40); WHITE BLOOD COUNT 8.9 x10^3/uL (4.8-10.8)
--- NOTE | 2021-12-15 16:04 | ED Physician Documentation ---
PD HPI ABD PAIN - Stated complaint Stated Complaint: CP - Chief complaint Chief Complaint: Cardiac - History obtained from History obtained from: Patient - History of Present Illness Timing - onset: How many minutes ago (45) - Additional information Additional information: 81yoF with PMH colon cancer s/p resection, in remission presents by EMS for severe midepigastric abdominal pain. Patient woke up from a nap with severe pain in her midepigastrum stating the pain felt like "a punch to the chest". She went to a walk-in clinic, and they called 911. Patient was given nitroglycerin by EMS that she reports an allergy to aspirin. This did not change her pain. EKG sinus rhythm. On arrival patient states that she is never felt pain like this before. It woke her up from sleep. Denies alcohol use, reports previous history of cholecystectomy.Pain is aching, constant with intermittent worsening, radiates upward into her chest. Denies associated nausea or vomiting. Worse with palpation. Review of Systems Ten Systems: 10 systems reviewed and negative Constitutional: denies: Fever, Chills, Myalgias Eyes: denies: Loss of vision, Decreased vision, Photophobia Ears: denies: Loss of hearing, Ear pain, Drainage/discharge Nose: denies: Rhinorrhea / runny nose, Congestion, Foreign Body Throat: denies: Dental pain / toothache, Oral lesions / sores, Sore throat Cardiac: denies: Chest pain / pressure, Palpitations, Calf pain Respiratory: denies: Dyspnea, Cough, Wheezing GI: reports: Abdominal Pain. 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 : None HEENT: None Psych: None Musculoskeletal: None Derm: None - Past Surgical History Past Surgical History: Yes General: Cholecystectomy, Appendectomy, Bowel surgery, Colonoscopy Ortho: Other HEENT: Cataracts, Rhinoplasty, Other Derm: Skin cancer surgery - Present Medications Home Medications: Ambulatory Orders Medication Instructions Recorded Confirmed Omeprazole 40 mg PO DAILY #30 cap 12/15/21 - Allergies Allergies/Adverse Reactions: Allergies Allergy/AdvReac Type Severity Reaction Status Date / Time aspirin Allergy Severe Respiratory Verified 03/12/19 14:48 peanut Allergy Unknown Verified 12/15/21 15:45 strawberry Allergy Hives Verified 03/12/19 14:48 - Social History Does the pt smoke?: Yes Smoking Status: Current every day smoker Does the pt drink ETOH?: No Does the pt have substance abuse?: No - Immunizations Immunizations are current?: Yes - POLST Patient has POLST: No PD ED PE NORMAL - Vitals Vital signs reviewed: Yes - General General: Alert and oriented X 3, Well developed/nourished, Other (in pain) - HEENT HEENT: Atraumatic, PERRL, EOMI, Ears normal, Moist mucous membranes - Neck Neck: Supple, no meningeal sign, No bony TTP, No JVD - Cardiac Cardiac: RRR, No murmur, Strong equal pulses - Respiratory Respiratory: No respiratory distress, Clear bilaterally - Abdomen Abdomen: Soft, Non distended, Other (midepigastric tenderness to palpation) - Female Female : Deferred - Rectal Rectal: Deferred - Back Back: No CVA TTP, No spinal TTP - Derm Derm: Normal color, Warm and dry, No rash - Extremities Extremities: No deformity, No tenderness to palpate, Normal ROM s pain, No edema - Neuro Neuro: Alert and oriented X 3, manager implementation 2-12 intact, No motor deficit, No sensory deficit, Normal speech - Psych Psych: Normal mood, Normal affect Results - Vitals Vitals: Oxygen O2 Source Room air - EKG (time done) 1552 Rate: Rate (enter#) (77) Rhythm: NSR [place]: Normal Intervals: Normal OR, RBBB Ischemia: Normal ST segments - Labs Labs: Laboratory Tests 12/15/21 12/15/21 12/15/21 15:52 15:52 15:52 WBC 8.9 RBC 4.26 Hgb 12.1 Hct 37.8 MCV 88.7 MCH 28.4 MCHC 32.0 RDW 13.0 Plt Count 228 MPV 8.5 Neut # (Auto) 7.3 H Lymph # (Auto) 0.9 L [place] # (Auto) 0.5 Eos # (Auto) 0.1 Baso # (Auto) 0.0 Absolute Nucleated RBC 0.00 Nucleated RBC % 0.0 Sodium 141 Potassium 3.4 L Chloride 103 Carbon Dioxide 31 Anion Gap 7.0 BUN 10 Creatinine 0.7 Estimated GFR (MDRD) 81 L Glucose 144 H Lactic Acid Calcium 8.9 Total Bilirubin 0.6 AST 22 ALT 17 Alkaline Phosphatase 54 Troponin I High Sens 5.1 B-Natriuretic Peptide Total Protein 6.7 Albumin 3.8 Globulin 2.9 Albumin/Globulin Ratio 1.3 Lipase 53 H 12/15/21 12/15/21 12/15/21 15:52 17:40 18:31 WBC RBC Hgb Hct MCV MCH MCHC RDW Plt Count MPV Neut # (Auto) Lymph # (Auto) [place] # (Auto) Eos # (Auto) Baso # (Auto) Absolute Nucleated RBC Nucleated RBC % Sodium Potassium Chloride Carbon Dioxide Anion Gap BUN Creatinine Estimated GFR (MDRD) Glucose Lactic Acid 0.9 Calcium Total Bilirubin AST ALT Alkaline Phosphatase Troponin I High Sens 7.5 B-Natriuretic Peptide 11 Total Protein Albumin Globulin Albumin/Globulin Ratio Lipase PD MEDICAL DECISION MAKING - ED course Complexity details: reviewed results, re-evaluated patient ED course: Patient transferred by EMS for chest pain, however it is more midepigastric pain that has occasionally radiate upward into her abdomen. Abdomen soft, there is tenderness palpation in the midepigastric region, however no peritoneal signs present. Labs and imaging ordered Lipase is normal, troponins negative x2. CT with mild colitis, however is diffuse and does not correlate with patient's symptoms. Patient was informed of her results, she is repeatedly asking for additional IV pain medications. No indication for additional medications at this time, no indications for narcotics upon discharge. Will treat as gastritis, PCP follow-up advised. Departure - Departure Disposition: 01 Home, Self Care Clinical Impression: Abdominal pain Condition: Stable Instructions: ED Gastritis Prescriptions: Omeprazole 40 mg PO DAILY #30 cap Comments: Call your doctor to arrange a follow-up appointment, make the next available appointment. In the interim, return anytime if worse or if new symptoms develop. Discharge Date/Time: 12/15/21 19:26
[2021-12-15 16:09] LABS: ALBUMIN 3.8 g/dL (3.2-5.5); ALBUMIN/GLOBULIN RATIO 1.3 (1.0-2.2); BILIRUBIN,TOTAL 0.6 mg/dL (0.2-1.0); CALCIUM 8.9 mg/dL (8.5-10.3); CREATININE 0.7 mg/dL (0.4-1.0); POTASSIUM 3.4 mmol/L (3.5-5.0); TOTAL PROTEIN 6.7 g/dL (6.7-8.2)
--- NOTE | 2021-12-15 16:14 | XRAY Report ---
PROCEDURE: Chest 1 View X-Ray INDICATIONS: midepigastric/chest pain TECHNIQUE: One view of the chest was acquired. COMPARISON: 08/09/2016 and 08/15/2016 FINDINGS: Surgical changes and devices: None. Lungs and pleura: No pleural effusions or pneumothorax. Lungs are clear. Mediastinum: Mediastinal contours appear normal. Heart size is normal. Bones and chest wall: No suspicious bony lesions. Overlying soft tissues appear unremarkable. IMPRESSION: Echogenic Reviewed by: Maritza Knowles MD, PhD on 12/15/2021 4:12 PM PDT Approved by: Maritza Knowles MD, PhD on 12/15/2021 4:12 PM PDT Station ID: [id number]
--- NOTE | 2021-12-15 17:09 | CT Report ---
PROCEDURE: Abdomen/Pelvis W INDICATIONS: midepigastric pain CONTRAST: IV CONTRAST: Optiray 320 ml: 100 PO CONTRAST: *NO PO CONTRAST TECHNIQUE: After the administration of intravenous contrast, 5 mm thick sections acquired from the diaphragms to the symphysis. 5 mm thick coronal and sagittal reformats were acquired. For radiation dose reducti on, the following was used: automated exposure control, adjustment of mA and/or kV according to hailey ent size. COMPARISON: CT abdomen/pelvis 4-17 FINDINGS: Image quality: Excellent. ABDOMEN: Lung bases: Mild atelectasis is seen in the lung bases. Heart size is normal. A peripherally calcifi ed lesion is partially imaged in the right breast that is stable in size when compared to the prior C T. Solid organs: Liver and spleen are normal in size and enhancement. Gallbladder is surgically absent . Biliary system is non dilated. Pancreas enhances normally. No adrenal nodules. A 4 mm nonobstruc ting calculus is seen in the interpolar region of the right kidney. A surgical clip is seen inferior to the right kidney. No left-sided renal calculus or hydronephrosis. Bilateral subcentimeter hypodens e lesions are most likely cysts. Peritoneum and bowel: Mild bowel thickening is seen in the transverse, descending, and sigmoid colon that may be secondary to underdistention versus a mild colitis. A few diverticula are seen in the sig moid colon without signs of acute diverticulitis. Right lower quadrant colonic anastomosis is seen. N o signs of bowel obstruction. No free fluid or air. Nodes and vessels: No retroperitoneal or mesenteric adenopathy by size criteria. Aorta and inferior vena cava are normal in size. Aortic atherosclerotic calcifications are present. Miscellaneous: No ventral hernias. PELVIS: Genitourinary: Bladder wall thickness is normal. Miscellaneous: No inguinal hernias or adenopathy. Bones: No suspicious bony lesions. No vertebral body compression fractures. Degenerative changes a re seen in the spine including grade 1 anterolisthesis of L3 on L4 and L4 on L5. IMPRESSION: 1.Mild bowel wall thickening in the transverse, descending, and sigmoid colon is nonspecific and may be due to underdistention versus a mild colitis. Minimal colonic diverticulosis. 2.Nonobstructing 4 mm calculus in the interpolar region of the right kidney. No hydronephrosis. Reviewed by: Jose Kauffman MD on 12/15/2021 5:08 PM PDT Approved by: Jose Kauffman MD on 12/15/2021 5:08 PM PDT Station ID: [id number]
[2021-12-15] MEDS ORDERED: fentaNYL 100 MCG/2 ML VIAL IVP STA (18:15)
[2021-12-15 19:17] VITALS: BP 157/87
== END 2021-12-15 19:26 | disposition home or self-care (01) ==
LOC: EDUNIT# → ED 15:36
DX: R10.13 Epigastric pain (principal); F17.200 Nicotine dependence, unspecified, uncomplicated
CPT/HCPCS: 36415; 71045; 74177; 80053; 83605; 83690; 83880; 84484; 85025; 93005; 96374; 99284; Q9967